=== PATIENT | female | born 1985 | race African-American/Black ===

== ENCOUNTER 2019-06-15 13:34 | Emergency (ER) | payer MEDICAID ==
[~2019-06-15] VITALS: Ht 177.8 cm; Wt 100.0 kg
[2019-06-15 13:37] VITALS: BP 120/60
[2019-06-15] MEDS ORDERED: METHOCARBAMOL 500MG TABLET PO ONE (14:30)
[2019-06-15] MEDS ORDERED: KETOROLAC 30MG/ML VIAL IM ONE (14:30)
== END 2019-06-15 16:28 | disposition home or self-care (01) ==
LOC: ER 13:34
DX: M54.2 Cervicalgia (principal); M54.5 Low back pain; R07.89 Other chest pain; I10 Essential (primary) hypertension; V49.49XA Driver injured in collision with other motor vehicles in traffic accident, initial encounter; Y93.89 Activity, other specified; Y92.89 Other specified places as the place of occurrence of the external cause; Y99.8 Other external cause status
CPT/HCPCS: 71045; 81025; 93005; 96372; 99283; J1885